=== PATIENT | male | born 1985 | race Caucasian/White ===

== ENCOUNTER 2020-02-01 03:58 | Emergency (ER) | payer OTHER ==
[2020-02-01] MEDS ORDERED: NORMAL SALINE 1000 ML 1,000 ML IV ONE ×3 (04:18→06:59)
[2020-02-01] MEDS ORDERED: ONDANSETRON HCL INJ/PF 4 MG/2 ML SDV IV ONE ×3 (04:20→06:34)
[2020-02-01 04:33] LABS: ABSOLUTE EOSINOPHILS # (AUTO) 0.1 10^3/uL (0.0-0.6); ABSOLUTE LYMPHOCYTES (AUTO) 2.1 10^3/uL (0.5-4.7); ABSOLUTE MONOCYTES (AUTO) 0.8 10^3/uL (0.1-1.4); ABSOLUTE NEUT (AUTO) 10.9 10^3/uL (1.7-8.2); BASOPHILS % (AUTO) 0.3 % (0-2); EOSINOPHILS % (AUTO) 0.4 % (0-6); HEMATOCRIT 47.3 % (37.9-51.0); HEMOGLOBIN 16.3 g/dL (13.5-17.0); LYMPHOCYTES % (AUTO) 15.2 % (13-45); MEAN CORPUSCULAR HEMOGLOBIN 31.3 pg (27.0-33.4); MEAN CORPUSCULAR HGB CONC 34.6 g/dL (32.0-36.0); MEAN CORPUSCULAR VOLUME 90 fl (80-97); MONOCYTES % (AUTO) 5.9 % (3-13); PLATELET COUNT 267 10^3/uL (150-450); RED BLOOD COUNT 5.23 10^6/uL (4.35-5.55); RED CELL DISTRIBUTION WIDTH 13.4 % (11.5-14.0); SEGMENTED NEUTROPHILS % (AUTO) 78.2 % (42-78); TOTAL CELLS COUNTED % (AUTO) 100 %
[2020-02-01] MEDS ORDERED: MORPHINE SULFATE 10 MG/ML INJ IV ONE ×2 (04:35→05:33)
[2020-02-01 04:46] LABS: ALBUMIN 4.9 g/dL (3.5-5.0); ALKALINE PHOSPHATASE 68 U/L (38-126); ASPARTATE AMINO TRANSFERASE 29 U/L (17-59); BILIRUBIN,TOTAL 0.8 mg/dL (0.2-1.3); BLOOD UREA NITROGEN 16 mg/dL (7-20); CALCIUM 9.5 mg/dL (8.4-10.2); GLUCOSE 75 mg/dL (75-110); POTASSIUM 4.2 mmol/L (3.6-5.0); TOTAL PROTEIN 8.1 g/dL (6.3-8.2)
[2020-02-01 04:51] LABS: CARBON DIOXIDE 16 mmol/L (22-30); CHLORIDE 101 mmol/L (98-107)
[2020-02-01 04:56] LABS: ANION GAP 23 (5-19)
[2020-02-01 07:40] LABS: APPEARANCE,URINE SLIGHTLY-CLOUDY; BILIRUBIN,URINE NEGATIVE (NEGATIVE); COLOR,URINE YELLOW; GLUCOSE, URINE NEGATIVE (NEGATIVE); KETONES,URINE 80 mg/dL (NEGATIVE); LEUKOCYTE ESTERASE,URINE NEGATIVE (NEGATIVE); NITRITE,URINE NEGATIVE (NEGATIVE); PROTEIN,URINE 100 mg/dL (NEGATIVE); URINE SPECIFIC GRAVITY 1.023; UROBILINOGEN,URINE NEGATIVE mg/dL (<2.0)
--- NOTE | 2020-02-01 07:55 | ER Document Report ---
ED General - General TRAVEL OUTSIDE OF THE [place] IN LAST 30 DAYS: No <JERAD URRUTIA - Last Filed: 02/01/20 07:48> <BOB KENNY - Last Filed: 02/01/20 11:59> - General Chief Complaint: Nausea/Vomiting Stated Complaint: VOMITING,NAUSEA Time Seen by Provider: 02/01/20 04:21 - HPI Notes: 34-year-old male history of distant ventral hernia repair x2, appendectomy, marijuana abuse presents with approximately 7 hours of sudden onset numerous episodes of vomiting associated with epigastric abdominal pain. Says he sees few specks of blood in vomit. Patient was previously well prior to symptom onset. Had few alcoholic drinks prior to onset but denies significant alcohol binge or history of alcohol abuse. Patient denies obstipation, diarrhea, constipation, melena/bright red blood per rectum, prior episodes, fever, myalgia, cough, shortness of breath, syncope, ingestions, trauma, urinary symptoms, genital symptoms (URRUTIAJERAD) - Related Data Allergies/Adverse Reactions: Sulfa (Sulfonamide Antibiotics) Allergy (Verified 02/01/20 07:08) Past Medical History - General Information source: Patient - Social History Smoking Status: Former Smoker Chew tobacco use (# tins/day): - former Frequency of alcohol use: Occasional Drug Abuse: Marijuana Family History: Reviewed & Not Pertinent Patient has homicidal ideation: No GI Medical History: Reports: Hx Gastroesophageal Reflux Disease Psychiatric Medical History: Denies: Hx Depression Past Surgical History: Reports: Hx Abdominal Surgery - hernai repair x2, Hx Appendectomy - Immunizations Hx Diphtheria, Pertussis, Tetanus Vaccination: Yes <ELIESER URRUTIARA Dominik - Last Filed: 02/01/20 07:48> Review of Systems <GHADAJERAD Lehman - Last Filed: 02/01/20 07:48> - Review of Systems Notes: REVIEW OF SYSTEMS: CONSTITUTIONAL : Denies fever, chills, or sweats. EENT: Denies recent cold/sinus symptoms, denies throat pain CARDIOVASCULAR: Denies chest pain, SANGITA RESPIRATORY: Denies cough, denies shortness of breath. GASTROINTESTINAL: +abdominal pain, +nausea/vomiting. GENITOURINARY: Denies difficulty urinating, painful urination. MUSCULOSKELETAL: Denies neck pain, back pain. SKIN: Denies rash or skin lesions. HEMATOLOGIC : Denies easy bruising or bleeding. LYMPHATIC: Denies swollen, enlarged glands. NEUROLOGICAL: Denies headache, denies change in gait. PSYCHIATRIC: Denies anxiety or stress or depression. (JERAD URRUTIA) Physical Exam <JERAD URRUTIA - Last Filed: 02/01/20 07:48> - Vital signs Vitals: Temp Pulse Resp BP Pulse Ox 97.5 F 132 H 22 H 133/78 H 99 02/01/20 04:06 02/01/20 04:06 02/01/20 04:06 02/01/20 04:06 02/01/20 04:06 - Notes Notes: PHYSICAL EXAMINATION: GENERAL: Well-appearing, well-nourished, uncomfortable appearing HEAD: Atraumatic, normocephalic. EYES: Pupils equal round and appropriate constriction, sclera anicteric, conjunctiva are normal. ENT: nares patent, dry mucous membranes. NECK: Normal range of motion, supple without lymphadenopathy LUNGS: Breath sounds clear to auscultation bilaterally and equal. No wheezes rales or rhonchi. HEART: Regular rate and rhythm without murmurs ABDOMEN: Soft, nontender, no guarding, no masses, no CVAT EXTREMITIES: Normal range of motion, no pitting or edema. No cyanosis. NEUROLOGICAL: Awake, alert, conversing appropriately, moves all extremities spontaneously. PSYCH: Normal mood, normal affect. SKIN: Warm, Dry, normal turgor, no rashes or lesions noted. (JERAD URRUTIA) Course - Laboratory Result Diagrams: 02/01/20 04:08 02/01/20 04:08 <JERAD URRUTIA - Last Filed: 02/01/20 07:48> - Laboratory Result Diagrams: 02/01/20 04:08 02/01/20 04:08 - Diagnostic Test Radiology reviewed: Image reviewed, Reports reviewed <BOB KENNY - Last Filed: 02/01/20 11:59> - Re-evaluation Re-evalutation: 02/01/20 04:51 Acute onset abdominal pain and vomiting with blood-tinged emesis. Concerning for possible SBO, less likely upper GI bleed given scant blood in emesis consistent with Heavenly-Villalba, no signs of Boerhaave syndrome. Possibly cannabinoid hyperemesis syndrome, but this is diagnosis of exclusion. Will obtain abdominal labs, CT abdomen pelvis, give fluids pain and nausea control. Patient significantly tachycardic on arrival but by time of my exam patient had received approximately 250 mL fluid bolus and heart rate had really normalized to 95. Patient turned over to Dr. Kenny pending CT. Initial labs concerning for mildly elevated creatinine and elevated anion gap likely secondary to starvation ketoacidosis from acute severe vomiting and dehydration. Patient has no sources for possible ingestions causing AG acidosis, patient is reliable historian, signed out repeat labs to Dr. Kenny. (JERAD URRUTIA) 02/01/20 09:14 20 evaluated patient at bedside Patient is pink in color able to carry on conversations not showing intractable nausea vomiting at this time. His abdomen is soft no rebound increased normoactive bowel sounds patient is receiving IV fluids now is ordered IV Reglan for patient's nausea and vomiting as well as a liter of D5 LR to be given. Patient shows on laboratories glucose is 75 with a CO2 of [address] scan disclose that he has epiploic appendagitis. This condition is a rare condition is not a surgical requirement and patient usually gets better within 7 days. Is an inflammatory reaction caused caused by many different reasons sometimes over eating will do it as well as sometimes the appendage some to twist on itself and decrease his blood supply. This is not a surgical it emergency nor is the patient obstructed. And antibiotics are not required.. 02/01/20 09:15 02/01/20 11:48 Patient resting comfortably not showing any signs of distress at this time abdomen soft nontender. Again discussed the diagnosis of epiploic appendagitis explained the patient that this is not a common disease process but it has happened to him he denies having eaten any large meal and also denies any, exertional activity recently to cause any kind of torsion of his internal organ contents. Again explained to patient that he does not need antibiotics as needed for this I am recommending Tylenol Protonix because of an upper GI bleed associated with his nausea and vomiting and Zofran for nausea. (BOB KENNY) - Vital Signs Vital signs: Temp Pulse Resp BP Pulse Ox 98.8 F 132 H 28 H 120/72 98 02/01/20 09:00 02/01/20 04:06 02/01/20 10:00 02/01/20 10:00 02/01/20 10:00 - Laboratory Laboratory results interpreted by ia: 02/01/20 02/01/20 02/01/20 04:08 04:08 06:50 WBC 14.0 H Absolute Neuts (auto) 10.9 H Seg Neutrophils % 78.2 H Carbon Dioxide 16 L Anion Gap 23 H Creatinine 1.41 H Est GFR (MDRD) Non-Af 58 L Urine Protein 100 H Urine Ketones 80 H Urine Ascorbic Acid 40 H - Diagnostic Test Radiology results interpreted by me: 02/01/20 09:16 CT scan of abdomen disclose acute epiploic appendagitis. No other acute process noted. (BOB KENNY) Discharge <JERAD URRUTIA - Last Filed: 02/01/20 07:48> <BOB KENNY - Last Filed: 02/01/20 11:59> - Discharge Clinical Impression: Abdominal pain, Epiploic appendagitis, Nausea and vomiting, Dehydration, Heavenly-Villalba tear Condition: Good Disposition: HOME, SELF-CARE Instructions: Intravenous (IV) Fluids ([facility]), Antinausea Medication ([facility]), Abdominal Pain ([facility]) Additional Instructions: Abdominal Pain There are many causes of abdominal pain. Pain can mean a serious problem requiring surgery (such as appendicitis). It can also be an innocent problem that goes away on its own (such as a viral infection). Often, time must pass to determine the cause of pain. The physician does not feel that hospitalization is necessary, at present. Things may change within the next 24 hours. Call the doctor or come back for re- examination if any problems occur, such as: (1) Pain that becomes more severe, steady, or becomes concentrated in one specific area. Also, pain that is more severe with movement or coughing. (2) Vomiting that persists or becomes more frequent. (3) Blood in the vomitus, urine, or bowel movements. Blood in the stool may have a tarry or black appearance. (4) Shaking chills or fever greater than 100 degrees F. (5) The abdomen becomes more distended or swollen. (6) Bowel movements cease. (7) Failure to improve as expected. You have acute epiploic appendagitis confirmed on CT scan of abdomen and pelvis. This is not a common disease process however it does occur in patients who may have had an a large meal or for some reason the appendages have loss of blood supply transiently to them due to torsion or twisting of the appendage. This is not a surgical emergency and nor does it require antibiotics. In addition you had intractable nausea and vomiting and noted some blood per vomit as well. No coffee ground was noted with that said we will put you on Protonix to take on a daily basis and sucralfate liquid to take 4 times a day. We also are not encouraging you and requesting that you follow-up with a GI specialist. Also as needed for pain would be Tylenol [id number]. Prescriptions: Pantoprazole Sodium [Protonix [address] Tablet] 40 mg PO QAM 30 Days #30 tablet. Sucralfate 1 gm PO QID 10 Days #1 bottle Ondansetron [Zofran Odt 4 mg Tablet] 1 - 2 tab PO Q4H PRN #20 tab.rapdis PRN Reason: For Nausea/Vomiting Forms: Return to Work Referrals: LEELEE BRYAN MD [ACTIVE STAFF] - Follow up in 3-5 days
[2020-02-01] MEDS ORDERED: DEXTROSE 5%-LACTATED RINGERS 1,000 ML IV ONE (08:43)
[2020-02-01] MEDS ORDERED: METOCLOPRAMIDE HCL INJ/PF 10 MG/2 ML SDV IV ONE (08:44)
--- NOTE | 2020-02-01 08:49 | RADIOLOGY REPORT (SQ) ---
EXAM DESCRIPTION: CT ABD/PELVIS WITH IV ORAL IMAGES COMPLETED DATE/TIME: 02/01/2020 8:25 am REASON FOR STUDY: epigastric pain vomiting multiple prior surr/o sbo COMPARISON: None. TECHNIQUE: CT scan of the abdomen and pelvis performed using helical scanning technique with dynamic intravenous contrast injection. No oral contrast. Images reviewed with lung, soft tissue, and bone windows. Reconstructed coronal and sagittal MPR images reviewed. Delayed images for evaluation of the urinary system also acquired. All images stored on PACS. All CT scanners at this facility use dose modulation, iterative reconstruction, and/or weight based d osing when appropriate to reduce radiation dose to as low as reasonably achievable (ALARA). [facility]: Dose Right [facility]: CareDose [facility]: Dose Right [facility]: Teradose 4D [facility]: [employer] CONTRAST TYPE AND DOSE: Contrast/concentration: Isovue 350.00 mg/ml; Total Contrast Delivered: 100.0 ml; Total Saline Delivered: 70.0 ml RENAL FUNCTION: GFR > 60. RADIATION DOSE: CT Rad equipment meets quality standard of care and radiation dose reduction techniq ues were employed. CTDIvol: 9.1 - 12.8 mGy. DLP: 1286 mGy-cm. LIMITATIONS: None. FINDINGS: LOWER CHEST: No acute findings. LIVER: The morphology of the liver is noncirrhotic. The portal veins are patent. There is no hepati c mass. SPLEEN: No splenomegaly or splenic mass. PANCREAS: No acute abnormality of the pancreas. GALLBLADDER: No abnormality that is apparent on CT. ADRENAL GLANDS: No mass or asymmetry. RIGHT KIDNEY AND URETER: No solid mass, hydronephrosis, nephrolithiasis, hydroureter or ureterolithia sis. LEFT KIDNEY AND URETER: No solid mass, hydronephrosis, nephrolithiasis, hydroureter or ureterolithias is. AORTA AND VESSELS: Accessory right inferior hepatic vein. There is no aneurysm or dissection of the abdominal aorta. RETROPERITONEUM: No retroperitoneal adenopathy, hemorrhage or mass. BOWEL AND PERITONEAL CAVITY: There is an ovoid fat attenuation structure adjacent to the colon in the mid abdomen (image 39 of series 3) with a high attenuation rim and no surrounding inflammatory fat s tranding or thickening of the adjacent peritoneal reflections. There is no bowel obstruction, bowel wall thickening or pericolonic/ perienteric inflammation. There is no mesenteric adenopathy or free intraperitoneal fluid. APPENDIX: Surgically absent. PELVIS: The urinary bladder is distended and normal in appearance. The prostate gland is normal in s ize. There is no pelvic mass. ABDOMINAL WALL: No mass or hernia. BONES: No acute findings. OTHER: No other finding. IMPRESSION: 1. Ovoid fat attenuation structure adjacent to the colon in the mid abdomen (image 39 o f series 3) with a high attenuation rim and no surrounding fat stranding or thickening of the adjacen t peritoneal reflections could represent an early epiploic appendagitis. 2. Status post appendectomy. There is no bowel obstruction. TECHNICAL DOCUMENTATION: JOB ID: [id number] Quality ID # [id number]: Final reports with documentation of one or more dose reduction techniques (e.g., Au tomated exposure control, adjustment of the mA and/or kV according to patient size, use of iterative reconstruction technique) 2010 [employer]- All Rights Reserved Reading location - IP/workstation name: [email or web address]
[2020-02-01] MEDS ORDERED: PANTOPRAZOLE SODIUM 40 MG VIAL IV ONE (09:21)
[2020-02-01 12:25] VITALS: BP 109/77
== END 2020-02-01 12:10 | disposition home or self-care (01) ==
LOC: ER 03:58
DX: K63.89 Other specified diseases of intestine (principal); R11.2 Nausea with vomiting, unspecified; R10.13 Epigastric pain; E86.0 Dehydration; K22.6 Gastro-esophageal laceration-hemorrhage syndrome; Z88.2 Allergy status to sulfonamides
CPT/HCPCS: 96376; 99284; 96361; 96374; 96375; 36415; 83690; 85025; 82271; 80053; 81001; 74177; J2765; J2270; C9113; J2405; J7121; J7030